=== PATIENT | female | born 1930 | race Caucasian/White ===

== ENCOUNTER 2016-12-18 00:24 | Inpatient (IN) | payer MEDICARE, OTHER ==
[2016-12-18] MEDS ORDERED: ONDANSETRON 4 MG/2ML 2 ML VIAL ONE (00:52)
[2016-12-18] MEDS ORDERED: SODIUM CHLORIDE 0.9% 1,000 ML ONE (00:52)
[2016-12-18] MEDS ORDERED: MORPHINE SULFATE 4 MG/ML SYRINGE ONE ×2 (00:52→02:12)
[2016-12-18 00:59] LABS: ABSOLUTE NEUTROPHIL COUNT 10.9 K/mm3 (1.8-7.7); BASO % 0.3 % (0.2-1.0); EOS # 0.2 (0.0-0.5); EOS % 1.5 % (0.9-2.9); HEMATOCRIT 41.4 % (37.0-47.0); HEMOGLOBIN 12.9 gm/l (12.0-16.0); IMM NEUT # 0.1 K/mm3 (0-0.2); IMM NEUT% 0.7 % (0-1); LYMPH # 1.4 (1.0-4.8); LYMPH % 10.3 % (15-45); MEAN CELL VOLUME 93.5 fl (81.0-99.0); MEAN CORPUSCULAR HEMOGLOBIN 29.1 pg (27.0-31.0); MEAN CORPUSCULAR HGB CONC 31.2 g/dl (33.0-37.0); MEAN PLATELET VOLUME 10.3 fl (7.4-10.4); MONO % 7.3 % (4-12); NEUT % 79.9 % (43-75); PLATELET COUNT 359 K/mm3 (130-400); RED CELL DISTRIBUTION WIDTH 17.6 % (11.5-14.5)
[2016-12-18 01:17] LABS: ALB/GLOB RATIO 0.7 (>1.0); ALBUMIN 3.6 gm/dL (3.5-5.7); CALCIUM 9.6 mg/dL (8.6-10.3)
[2016-12-18 01:59] LABS: URINE BILIRUBIN NEGATIVE (NEGATIVE); URINE BLOOD TRACE (NEGATIVE); URINE GLUCOSE (UA) NEGATIVE (NEGATIVE); URINE LEUKOCYTE ESTERASE NEGATIVE (NEGATIVE); URINE NITRITE NEGATIVE (NEGATIVE); URINE PROTEIN 1+ (NEGATIVE); URINE UROBILINOGEN NORMAL (0-1 mg/dl)
[2016-12-18 02:00] LABS: URINE APPEARANCE HAZY; URINE COLOR YELLOW
[2016-12-18 02:04] LABS: URINE BACTERIA FEW; URINE EPITHELIAL CELLS MODERATE /hpf; URINE WBC NEG /hpf
[2016-12-18 02:55] VITALS: BMI 30.7
[2016-12-18] MEDS ORDERED: BLISTEX LIPSTICK 1 EACH TP PRN (03:40)
[2016-12-18] MEDS ORDERED: MENTHOL/CETYLPYRD 1 EACH LOZENGE PO PRN (03:40)
[2016-12-18] MEDS: HYDROMORPHONE HCL 1 MG/ML SYRINGE IV PRN ×2 (03:54→06:06)
[2016-12-18] MEDS ORDERED: SODIUM CHLOR 0.45%/KCL 20 MEQ 1,000 ML IV SCH (04:00)
[2016-12-18] MEDS ORDERED: PUMP TUBING ONE ×2 (04:18→11:30)
[2016-12-18] MEDS: INSULIN ASPART (DOSE) 100 UNITS/1 ML SUB-Q PRN ×4 (04:26→23:48)
[2016-12-18] MEDS: ALBUTEROL/IPRATROPIUM 2.5/0.5 MG 3 ML/EACH DOSE NEB SCH ×4 (07:17→19:55)
[2016-12-18 07:40] LABS: INR 0.97; PARTIAL THROMBOPLASTIN TIME 25.8 SECONDS (24.5-33.0); PROTHROMBIN TIME 10.2 SECONDS (9.3-11.4)
[2016-12-18 07:43] LABS: I-STAT CREATININE 0.9 mg/dL (0.6-1.3)
--- NOTE | 2016-12-18 08:05 | RAD ---
12/18/2016 8:01 AM CHEST-AP BEDSIDE History: Preop hip fracture Comparison: None Findings: Single AP view of the chest is obtained. The lungs are clear with out effusion or pneumothorax. The cardiomediastinal silhouette is mild to moderately enlarged. The osseous structures are intact.. IMPRESSION: Mild to moderate enlargement of the cardiomediastinal silhouette. Otherwise no acute process. Correlation with any outside imaging would be recommended.
--- NOTE | 2016-12-18 08:09 | HP ---
Yaneth Sena [id number] : 1930 DATE OF ADMISSION: 12/18/2016 IDENTIFICATION: Ms. Sena is an 86-year-old patient of Dr. Winkler. CHIEF COMPLAINT: Left hip pain. HISTORY OF PRESENT ILLNESS: Ms. Sena fell asleep while sitting on a rolling chair, she fell off, and landed on her left hip and had immediate pain. She was unable to standup or bear weight. She was brought to [facility] where x-ray's show a intertrochanteric left femur fracture. She was referred to the hospitalist service and to Dr. العراقي for surgical repair. REVIEW OF SYSTEMS: Patient is quite somnolent at the time of my exam and is not cooperative with answering questions. PAST MEDICAL HISTORY: 1. Diabetes mellitus type 2. 2. Hypertension. 3. Coronary artery disease, status post two stents. 4. Obesity with body mass index of 30.7 5. Presumed chronic obstructive pulmonary disease with extensive smoking history. 6. Presumed obstructive sleep apnea. 7. Nicotine dependence. 8. Anxiety and panic attacks. 9. Chronic pain. PAST SURGICAL HISTORY: 1. She has had some back surgery. 2. She states six screws in her sacrum. 3. Bilateral cataracts. ALLERGIES: REPORTED TO PENICILLIN, UNCLEAR REACTION, BUT POSSIBLY SEVERE ANAPHYLAXIS. MEDICATIONS: Patient provided a written list and this will be verified with her primary care provider: 1. Hydrocodone with acetaminophen 7.5/325 one tablet every 6 hours. 2. Januvia 100 mg by mouth daily. 3. Quinapril 10 mg by mouth daily. 4. Hydrochlorothiazide 25 mg by mouth daily. 5. Glipizide 10 mg by mouth twice daily. 6. Clonidine 0.2 mg by mouth twice daily. 7. Metformin 1000 mg by mouth twice daily. 8. Gabapentin 600 mg by mouth three times daily. 9. Aspirin 81 mg by mouth at bedtime. 10. Atorvastatin 10 mg by mouth nightly. 11. Amlodipine unclear dose daily. HABITS: She smokes a pack and a quarter daily for at least 50 years. Denies alcohol or other drugs. SOCIAL HISTORY: She is and lives by herself in [place] but has a caregiver. She does have a daughter in [place]. FAMILY HISTORY: Unknown. PHYSICAL EXAMINATION:GENERAL: This is an obese somnolent elderly woman with dyed pink hair. VITAL SIGNS: Temperature 98.2 degrees Fahrenheit, pulse 109, blood pressure 175/94, respiration rate 16, oxygen saturation varies from 85% to 91% on 2 liters of oxygen. HEENT: Pupils constricted, equal, round, and reactive. Extraocular muscles are intact. Pupils are status post cataract surgery. Orophyarnx is moist. A few remaining lower teeth in poor condition. NECK: Plethoric. CHEST: Poor air movement. No wheezes or rhonchi appreciated. HEART: Regular. ABDOMEN: Obese, soft, nontender, normal bowel tones, no organomegaly. EXTREMITIES: Moderate dorsalis pedis pulses. No edema. There is a moderate degree of clubbing of the finger nails. NEUROLOGIC: Patient is somnolent and does not cooperate with exam, but does not appear to have focal deficits. LABORATORIES: White blood cell count 13.7, hemoglobin and hematocrit 12.9 and 41.4, platelets 359. Sodium 135, potassium 4.2, chloride 99, CO2 26, BUN 29, creatinine 1.0, glucose 189. Urinalysis specific gravity of 1.020, 1+ protein, trace blood, negative nitrite and leukocyte esterase, negative microscopic. DIAGNOSTICS: Chest x-ray shows cardiomegaly. Pelvic x-ray intertrochanteric fracture of the left femur. EKG is pending. ASSESSMENT: 1. Ms. Sena is an 86-year-old with an acute left femur fracture. 2. She has undiagnosed chronic lung disease probably chronic obstructive pulmonary disease and obstructive sleep apnea with obesity hypoventilation. 3. Diabetes. 4. Hypertension and coronary artery disease. 5. Chronic pain. PLAN: 1. Admit to med/surg. 2. Respiratory therapy consultation, plan supplemental oxygen and nebulizer treatments. 3. Obtain outpatient records from her primary care provider for medication list and medical history. 4. Check EKG, PT, and PTT. 5. Nothing by mouth for now for potential surgery although, she needs further evaluation before surgical clearance. 6. Venous thromboembolism prophylaxis with intermittent compression sleeves on the calves prior to surgery. 7. Full code status. JOB: [id number]
--- NOTE | 2016-12-18 08:14 | RAD ---
HISTORY: Fall from chair. Left hip pain. Initial encounter. COMPARISONS: None FINDINGS: AP pelvis with AP and crosstable lateral views of the left hip are obtained. Bones: Comminuted intertrochanteric fracture is identified involving the left hip. No intra-articular extension is present. Fracture fragments are mildly displaced laterally without significant angulation. No proximal retraction is identified. There is diffuse osteopenia. No other fracture or dislocation is identified. Mild spurring along the lateral acetabular roof is present bilaterally. Post surgical change from pedicle screw and anita fixation is present along the inferior lumbar spine. Joints: Mild superior joint space narrowing is present bilaterally. Soft tissue: Multiple phleboliths are present throughout the pelvis. Other: Nonspecific bowel gas pattern overlays the osseous structures.. IMPRESSION: Comminuted intertrochanteric fracture as above.
[2016-12-18] MEDS ORDERED: DILTIAZEM HCL 5 MG/ML 5ML VIAL IV ONE (08:21)
[2016-12-18] MEDS ORDERED: IV START KIT ONE ×2 (08:34→19:51)
[2016-12-18] MEDS ORDERED: SODIUM CHLORIDE 0.9% FLUSH 10 ML ONE (08:34)
[2016-12-18 08:43] LABS: CALCIUM 9.1 mg/dL (8.6-10.3)
[2016-12-18] MEDS ORDERED: FUROSEMIDE 20 MG/2 ML VIAL IV ONE (09:07)
[2016-12-18] MEDS: HYDROMORPHONE HCL 0.5 MG/0.5 ML SYRINGE IV PRN ×5 (10:23→21:48)
[2016-12-18] MEDS ORDERED: NITROGLYCERIN 0.4 MG/TAB.SUBL BOT SL PRN (10:50)
[2016-12-18] MEDS ORDERED: FUROSEMIDE 20 MG/2 ML VIAL ONE (11:25)
[2016-12-18 11:31] LABS: TROPONIN I < 0.01 ng/ml (0.0-0.06)
[2016-12-18] MEDS: SODIUM CHLORIDE 0.9% 100 ML IV PRN ×2 (11:36→16:24)
[2016-12-18 11:40] LABS: THYROID STIMULATING HORMONE 2.04 uIU/ml (0.34-5.60)
[2016-12-18] MEDS: DILTIAZEM HCL/NORMAL SALINE 100 ML IV PRN ×2 (11:40→19:10)
[2016-12-18] MEDS ORDERED: ENOXAPARIN SODIUM 100 MG/ML SYRINGE SUB-Q SCH (12:30)
[2016-12-18] MEDS ORDERED: IOPAMIDOL 370 (76%) 100 ML VIAL IV ONE (13:14)
--- NOTE | 2016-12-18 13:48 | CT ---
INDICATION: Hip fracture. Acute respiratory failure. COMPARISON: Chest x-ray earlier on the same day. TECHNIQUE: Helical scan mode CT of the Thorax with 2 mm collimated images were obtained after uneventful intravenous contrast administration of 80 of Isovue-370. Sagittal and coronal reformations with high resolution lung algorithm images were also created at this time. Maximal intensity projection images were created. DLP: 969.5 FINDINGS: There are no pulmonary arterial filling defects. Abnormal density is identified extending from the left hilum posteriorly involving the apical and posterior segments of the left lower lobe. There is collapse of the lower lobe bronchus secondary to mass effect from this lesion. It is difficult to separate this structure from the hilar structures. This measures approximately 6.9 x 8.1 cm on axial image 40. This has craniocaudal extent of approximately 6.9 cm on sagittal image 36. The pulmonary vasculature appears to extend along the anterior and inferior margin of this lesion. This does not appear to be pleural-based and appears to be within the parenchyma, however distortion in the anatomy does make it difficult to separate. This does also encase portions of the left pulmonary artery, particularly the inferior aspect. Atelectatic changes are noted with within the right lower lobe. Small left-sided effusion is present. The central airways are widely patent. There is no axillary, or hilar adenopathy. Enlarged subcarinal node on axial image 41 measures 1.9 x 1.3 cm. The heart and great vessels opacify normally. Heart is moderately enlarged. Hypodensity is incompletely evaluated within the liver on image 98 measuring 1.5 x 1.3 cm. Remainder of the visualized abdomen is grossly unremarkable. Review of bone windows demonstrates no osteoblastic or lytic lesions. Degenerative changes of the shoulders are present bilaterally, and the spine. IMPRESSION: 1. Negative for pulmonary embolism. Mass lesion extending from the left hilum into the apical segment left lower lobe and posterior segment. Apical segment collapse is possible, though no vessels traverse this region. Small effusion is present. There is collapse of the lower lobe bronchus secondary to this lesion. Subcarinal adenopathy is also noted. Findings are worrisome for malignancy till proven otherwise. Cardiomegaly and other incidental findings as above. Correlation with any outside imaging could be helpful in further assessment. Findings were called to Dr. Mccormick at approximately 1344 hours on 12/17/2016.
[2016-12-18] MEDS ORDERED: ENOXAPARIN SODIUM 40 MG/0.4 ML SYRINGE SUB-Q SCH (15:30)
[2016-12-18 15:40] LABS: ARTERIAL BLOOD GAS PCO2 62.3 mmHg (35.0-45.0); ARTERIAL BLOOD GAS PO2 67.3 mmHg (80.0-90.0); ARTERIAL BLOOD GAS pH 7.291 (7.350-7.450)
[2016-12-18 15:41] LABS: ARTERIAL BLOOD GAS BASE EXCESS 1.4 mmol/L (-2.0-2.0); ARTERIAL BLOOD GAS HCO3 29.4 mmol/L (22.0-28.0)
[2016-12-18] MEDS: D5 1/2NS with 20 mEq KCL 1,000 ML IV SCH (17:19)
[2016-12-18] MEDS: ONDANSETRON 4 MG/2ML 2 ML VIAL IV PRN (19:17)
[2016-12-19] MEDS: HYDROMORPHONE HCL 0.5 MG/0.5 ML SYRINGE IV PRN ×4 (00:05→05:39)
[2016-12-19] MEDS: ONDANSETRON 4 MG/2ML 2 ML VIAL IV PRN ×3 (01:56→10:20)
[2016-12-19] MEDS: D5 1/2NS with 20 mEq KCL 1,000 ML IV SCH ×2 (03:00→12:51)
[2016-12-19] MEDS: INSULIN ASPART (DOSE) 100 UNITS/1 ML SUB-Q PRN (05:47)
[2016-12-19] MEDS: ALBUTEROL/IPRATROPIUM 2.5/0.5 MG 3 ML/EACH DOSE NEB SCH ×2 (07:16→11:08)
[2016-12-19] MEDS: HYDROMORPHONE HCL 1 MG/ML SYRINGE IV PRN (07:23)
[2016-12-19] MEDS ORDERED: CLONIDINE HCL TD SCH (07:30)
[2016-12-19] MEDS ORDERED: INSULIN ASPART (DOSE) 100 UNITS/1 ML SUB-Q PRN (07:31)
[2016-12-19] MEDS: DILTIAZEM HCL CD 240 MG CAPSULE PO SCH ×2 (07:38→08:07)
[2016-12-19] MEDS ORDERED: ENOXAPARIN SODIUM 40 MG/0.4 ML SYRINGE SUB-Q SCH (09:00)
[2016-12-19] MEDS ORDERED: CLONIDINE HCL 0.1 MG TABLET PO ONE (10:07)
[2016-12-19] MEDS ORDERED: MORPHINE SULFATE 4 MG/ML SYRINGE IV PRN (10:16)
[2016-12-19] MEDS ORDERED: MORPHINE SULFATE 10 MG/ML SYRINGE IV PRN (10:16)
[2016-12-19] MEDS: MORPHINE SULFATE 2 MG/ML SYRINGE IV PRN ×2 (10:20→14:16)
[2016-12-19] MEDS ORDERED: LORAZEPAM 2 MG/ML 1ML SDV IV PRN (11:06)
[2016-12-19 11:10] LABS: ABSOLUTE NEUTROPHIL COUNT 25.7 K/mm3 (1.8-7.7); BASO # 0.1 K/mm3 (0.0-0.2); BASO % 0.2 % (0.2-1.0); HEMATOCRIT 41.8 % (37.0-47.0); HEMOGLOBIN 13.2 gm/l (12.0-16.0); IMM NEUT # 0.3 K/mm3 (0-0.2); LYMPH # 0.4 (1.0-4.8); LYMPH % 1.4 % (15-45); MEAN CELL VOLUME 93.9 fl (81.0-99.0); MEAN CORPUSCULAR HEMOGLOBIN 29.7 pg (27.0-31.0); MEAN CORPUSCULAR HGB CONC 31.6 g/dl (33.0-37.0); MEAN PLATELET VOLUME 10.6 fl (7.4-10.4); MONO # 0.5 (0.0-0.8); NEUT % 95.4 % (43-75); PLATELET COUNT 290 K/mm3 (130-400); RED CELL DISTRIBUTION WIDTH 16.9 % (11.5-14.5)
[2016-12-19] MEDS ORDERED: INSULIN GLARGINE (DOSE) 100 UNITS/ML UNIT SUB-Q SCH (11:15)
[2016-12-19] MEDS ORDERED: PUMP TUBING ONE (11:52)
[2016-12-19] MEDS: DILTIAZEM HCL/NORMAL SALINE 100 ML IV PRN (11:57)
[2016-12-19] MEDS ORDERED: ENALAPRILAT DIHYDRATE 1.25 MG/ML 1ML VIAL IV SCH (12:00)
[2016-12-19 12:12] LABS: ALB/GLOB RATIO 0.7 (>1.0); ALBUMIN 3.4 gm/dL (3.5-5.7); CALCIUM 10.1 mg/dL (8.6-10.3); MAGNESIUM 1.7 mg/dL (1.9-2.7)
[2016-12-19 12:21] LABS: BAND 0 % (0-10); BASOPHIL 0 % (0-1); EOSINOPHIL 0 % (1-3); LYMPHOCYTE 2 % (15-45); MONOCYTE 1 % (4-12); NEUTROPHILS 97 % (43-75); PLATELET ESTIMATE NORMAL (NORMAL); TOTAL CELLS COUNTED 100
[2016-12-19] MEDS ORDERED: LORAZEPAM 2 MG/ML 1ML SDV IV ONE (12:28)
--- NOTE | 2016-12-19 12:29 | PDOC43 ---
- Subjective Chief Complaint: Hip Fx, resp failure Shortly after admit in AM 12/18/16 pt deteriorated in to resp failure. Chest CTA with no PE but did show large 8x7 cm LLL lung mass. On Bipap yesterday with FIO2 up to 85%. Considered transfer last night but pt/family didn't want to undergo intubation for transfer. This AM still on Bipap but FIO2 down to 40%. Significant pain/anxiety controlled with IV meds. Had A fib with RVR on dilt gtt- off this AM but now HR elevated again. Subjective: Denies Nausea, Denies Vomiting, Denies Fever, Denies Chills - Objective Vital Signs Temperature 98.6 F 12/19/16 07:03 Pulse Rate 132 12/19/16 11:21 Respiratory Rate 35 12/19/16 11:09 Blood Pressure 204/87 12/19/16 10:03 O2 Saturation by Pulse Oximetry 91 12/19/16 11:21 Oxygen Delivery Method Bi-PAP Oxygen Flow Rate 12 Intake and Output 12/18/16 12/19/16 12/20/16 06:59 06:59 06:59 Intake Total 2120 19 Output Total 550 2350 Balance -550 -230 19 General: Moderate Distress (Awake. Moaning- hip pain.) HEENT: Atraumatic Lungs: Other (Distant sounds all rayo. No rales/rhonchi.) Cardiovascular: Irregular Abdomen: Soft, Normal Bowel Sounds, Non-Distended, No Tenderness Extremities: Edema (Tr edema B.), Normal Cap Refill, Normal Pulses, Other (LLE externally rotated. NV intact.), No Tenderness Laboratory 12/19/16 09:50 Current Medications: Current meds reviewed in EMR. - Problems: Assessment/Plan (1) Femur fracture, left Qualifiers: Encounter type: initial encounter Fracture type: closed Status: Acute Assessment/Plan: L intertroch Hip fx. Occurred in early AM hours of 12/18/16. Will require surgery at higher level of care given other acute medical issues (see below). Con't supportive care. (2) Respiratory failure Qualifiers: Chronicity: acute Respiratory failure complication: hypoxia and hypercapnia Qualifier Code: (J96.01) Acute respiratory failure with hypoxia Status: Acute Assessment/Plan: Acute resp failure in AM 12/18/16. Etiology presumed fat emboli in context of acute hip fx and chest CTA negative for PE. Still requiring Bipap but improved FIO2. (3) Lung mass Status: Acute Assessment/Plan: 8X7 cm LLL lung mass noted on CTA. Presumed CA. Pt desires work-up. Attempting transfer as below. Pt with marked functional decline and approx 70 lb wt loss over last 1 year as per family. (4) Atrial fibrillation Qualifiers: Atrial fibrillation type: unspecified Qualifier Code: (I48.91) Unspecified atrial fibrillation Status: Acute Assessment/Plan: A fib with RVR at time of resp failure. On dilt gtt overnight with attempt to transition to po this AM- now again with HR 120-150's. Will resume dilt gtt. (5) COPD (chronic obstructive pulmonary disease) Qualifiers: COPD type: unspecified COPD Qualifier Code: (J44.9) Chronic obstructive pulmonary disease, unspecified Status: Chronic Assessment/Plan: Presumed undiagnosed COPD in pt with 70+ pyhx and con't to smokw 1-2 ppd. Supportive care as above. (6) HTN (hypertension), benign Status: Chronic Assessment/Plan: On multiple meds at baseline including clonidine. Will transition to IV enalapril and clonidine patch. Dilt gtt as above. (7) Diabetes type 2, controlled Qualifiers: Diabetes mellitus complication status: without complication Status: Chronic Assessment/Plan: Stable. Basal/bolus. (8) CAD (coronary artery disease) Qualifiers: Coronary Disease-Associated Artery/Lesion type: unspecified vessel or lesion type Status: Chronic Assessment/Plan: No evidence of ACS. Follow. Supportive care. (9) Obesity (BMI 30.0-34.9) Status: Chronic Assessment/Plan: Complicating all other dx/tx. VTE Prophylaxis: Lovenox. Disposition: Attempting to arrange transfer to tertiary hospital.
[2016-12-19] MEDS ORDERED: MAGNESIUM SULFATE 2 G/50 ML 2 G in Premix (Water) 50 ml 1 EACH IV ONE (13:45)
[2016-12-19 14:47] VITALS: BP 181/65
--- NOTE | 2016-12-19 15:45 | TS ---
ALICE PLASCENCIA [id number] ADMIT DATE: 12/18/2016 TRANSFER DATE: 12/19/2016 ADMITTING DIAGNOSES: 1. Left intertrochanteric hip fracture secondary to a ground-level fall. 2. Presumed undiagnosed COPD in a patient with a 70+ pack-year history of smoking. 3. Diabetes. 4. Stable coronary artery disease. 5. Hypertension, on multiple medications. 6. Chronic pain. TRANSFER DIAGNOSES: 1. Left intertrochanteric hip fracture. 2. Acute respiratory failure on the late morning of 12/18/2016, etiology felt to be presumed fat emboli in the context of an acute hip fracture. Chest CTA was negative for pulmonary emboli, on BiPAP at time of transfer. 3. Lung mass. An 8 x 7 cm lung mass was noted on chest CT angiogram after admission, presumed cancer. The patient does desire a workup. Of note, the patient has had a marked functional decline and an approximately 70 pound weight loss over the last one year as per her family. 4. Atrial fibrillation with RVR. At the time of her acute respiratory failure she had developed atrial fibrillation with rapid ventricular response. She was placed on a diltiazem drip and remains on such at the time of discharge. An echocardiogram was performed prior to discharge. The preliminary report indicates a normal ejection fraction. The final report is still pending. 5. Presumed underlying COPD in a context of 70+ pack-year history of smoking, appears to be at baseline. 6. Hypertension, on multiple medications. She was on IV enalapril and a clonidine patch, as well as a diltiazem drip, due to her NPO status. 7. Diabetes mellitus Type-2, stable on basal bolus. 8. Coronary artery disease, with no evidence of ACS. 9. Obesity, complicating all of the above. ADMIT HISTORY AND PHYSICAL: Please see Dr. Pulido's note for details. Briefly, Ms. Plascencia is an 86-year-old female who rarely goes to the physician. She has presumed undiagnosed COPD and obstructive sleep apnea at admission. She was brought in after falling in her chair in the director of infection control hours of 12/18/2016. She suffered a left intertrochanteric hip fracture. In the ER she was worked-up and felt to be stable. She was admitted to the Hospitalist Service, with plans for an orthopedic consult. HOSPITAL COURSE: She was admitted in the director of infection control hours of 12/18/2016 and seemed to be stable. On the mid to late morning of 12/18/2016 she had acute respiratory failure. She was placed on BiPAP and transferred to the ICU. Workup included a chest CT angiogram which was negative for pulmonary emboli, though it did show an incidental finding of an 8 x 7 cm left lower lobe lung mass, concerning for cancer. There were no other acute findings, no pneumonias, etc. She also at this time developed atrial fibrillation with rapid ventricular response and was treated with an IV diltiazem drip, with good rate control. An echocardiogram was obtained, with the preliminary report indicating a normal ejection fraction. The final report is still pending at the time of this dictation. She required significant BiPAP support overnight. Code status was clarified with the family and she is DNR/DNI. She did indicate she would indicate short-term intubation for the purposes of surgery or if she had a reversible illness. On the morning of 12/19/2016, then she was slightly improved, still BiPAP-dependent, though her FI02 was down to 40%, down from 85% the night before. Her blood work remained unremarkable. I just had multiple discussions with the patient's family and have recommended transfer to a tertiary hospital for pulmonology care and workup of her mass, as well as eventual surgery for her hip. The family requested transfer to [facility], and this was arranged after multiple phone calls to other places. Dr. Sage Sosa has graciously accepted this patient in transfer. PROBLEM LIST AT TIME OF DISCHARGE: As above. MEDICATIONS AT TIME OF TRANSFER: 1. Catapres patch 0.3 mg per 24 hours, initiated on the morning of 12/19/2016. 2. Lorazepam as needed. 3. Ondansetron as needed. 4. Diltiazem drip titrated to heart rate. 5. Nitroglycerin sublingual as needed. 6. Basal bolus insulin, with Lantus and aspart. 7. Morphine as needed for pain. 8. DuoNeb four times a day, scheduled. 9. Lovenox 40 mg sub-Q every 24 hours for DVT prophylaxis. 10. Enalaprilat 1.25 mg IV every six hours. DISCHARGE FOLLOW-UP: As per Dr. Sosa. cc: Dr. Chriss Winkler
== END 2016-12-19 15:00 | disposition short-term general hospital (02) | DRG 535 ==
LOC: ED 00:24 → MS 01:48 → ICU 11:35
PROVIDERS: ADMIT Family Medicine; ATTEND Family Medicine
DX: S72.142A Displaced intertrochanteric fracture of left femur, initial encounter for closed fracture (principal); J96.00 Acute respiratory failure, unspecified whether with hypoxia or hypercapnia; E11.9 Type 2 diabetes mellitus without complications; I10 Essential (primary) hypertension; I25.10 Atherosclerotic heart disease of native coronary artery without angina pectoris; E66.9 Obesity, unspecified; Z68.30 Body mass index [BMI] 30.0-30.9, adult; J44.9 Chronic obstructive pulmonary disease, unspecified; G47.33 Obstructive sleep apnea (adult) (pediatric); F17.200 Nicotine dependence, unspecified, uncomplicated; F41.9 Anxiety disorder, unspecified; Y92.018 Other place in single-family (private) house as the place of occurrence of the external cause; W07.XXXA Fall from chair, initial encounter; F41.0 Panic disorder [episodic paroxysmal anxiety]; G89.29 Other chronic pain; R91.8 Other nonspecific abnormal finding of lung field